=== PATIENT | male | born 1965 | race Caucasian/White ===

== ENCOUNTER 2021-05-06 08:00 | Outpatient (CLI) | payer BC ==
--- NOTE | 2021-05-08 11:49 | XRAY Report ---
PROCEDURE: Finger(s) RT INDICATIONS: CONTUSION TO RIGHT LITTLE FINGER TECHNIQUE: AP hand, 2 views of the right fifth finger(s) acquired. COMPARISON: None. FINDINGS: Transverse fracture of the fifth distal phalanx through the proximal metadiaphysis. No intra-articula r extension. No significant displacement. IMPRESSION: Nondisplaced transverse distal phalanx fracture. Reviewed by: Mac Garcia MD on 05/08/2021 11:47 AM PDT Approved by: Mac Garcia MD on 05/08/2021 11:47 AM PDT Station ID: [id number]
== END 2021-05-06 23:59 | disposition home or self-care (01) ==
LOC: DI.S 08:00
PROVIDERS: ATTEND Emergency Medicine
DX: S62.666A Nondisplaced fracture of distal phalanx of right little finger, initial encounter for closed fracture (principal)

== ENCOUNTER 2024-07-04 12:10 | Observation (INO) ==
[2024-07-04] MEDS ORDERED: iohexoL-300 100 ML VIAL ONE ×2 (12:42→16:52)
[2024-07-04] MEDS: HYDROmorphone 1 MG/ML CARPUJECT IVP STA (12:56)
[2024-07-04 12:57] LABS: BASOPHILS % (AUTO) 0.3 %; EOSINOPHILS % (AUTO) 0.3 %; HCT - HEMATOCRIT 46.4 % (42.0-52.0); HGB - HEMOGLOBIN 16.2 g/dL (14.0-18.0); LYMPHOCYTES # (AUTO) 1.6 10^3/uL (1.5-3.5); LYMPHOCYTES % (AUTO) 12.5 %; MEAN CORPUSCULAR HEMOGLOBIN 31.6 pg (27.0-31.0); MEAN CORPUSCULAR HGB CONC 34.9 g/dL (32.0-36.0); MEAN CORPUSCULAR VOLUME 90.4 fL (80.0-94.0); MEAN PLATELET VOLUME 9.7 fL (7.4-11.4); MONOCYTES # (AUTO) 0.5 10^3/uL (0.0-1.0); MONOCYTES % (AUTO) 4.1 %; NEUTROPHILS # (AUTO) 10.6 10^3/uL (1.5-6.6); NEUTROPHILS % (AUTO) 82.4 %; PLT - PLATELET COUNT 238 10^3/uL (130-450); RED BLOOD COUNT 5.13 10^6/uL (4.70-6.10); RED CELL DISTRIBUTION WIDTH 11.9 % (12.0-15.0); WHITE BLOOD COUNT 12.9 x10^3/uL (4.8-10.8)
--- NOTE | 2024-07-04 13:01 | ED Physician Documentation ---
History of Present Illness Stated complaint Stated Complaint: ABD PX Chief complaint Chief Complaint: Abd Pain History obtained from History obtained from: Patient and Family History of Present Illness Timing: Today Pain level max: 10 Pain level now: 10 Additonal information Additional information: Patient is a 58-year-old male who presents to the emergency department stating that he has right inguinal pain, radiates to the testicles, also radiates up into the abdomen. Nothing makes it better or worse. Thinks that he may have a hernia. No dysuria or urinary frequency. He states it feels like his right testicle is "trying to go home". He states that the testicle itself does not hurt, just that area. He states he also has a rash in the right pubic area. He went to the walk-in clinic and was evaluated there, they sent him here for worsening pain. Meds/Allgy Home Medications Ambulatory Orders Medication Instructions Recorded Confirmed dextroamphetamine-amphetamine 10 10 mg PO QDAY 07/04/24 07/04/24 mg tablet (Adderall) dextroamphetamine-amphetamine ER 20 mg PO QAM 07/04/24 07/04/24 20 mg 24hr capsule,extend release (Adderall XR) nystatin 100,000 unit/gram topical 1 applic topical BID #30 grams 07/04/24 ointment ondansetron 4 mg disintegrating 4 mg PO Q8H PRN nausea and 07/04/24 tablet vomiting #14 tabs oxycodone 5 mg tablet 5 mg PO Q4H PRN Pain #10 tabs 07/04/24 Allergies Allergies Allergy/AdvReac Type Severity Reaction Status Date / Time No Known Drug Allergies Allergy Verified 07/04/24 12:30 [facility] Social History Social History (Updated 07/04/24 @ 14:48 by Lorelei Barakat CRNA) Smoking Status: Current every day smoker Relationship: Do you feel safe in your home environment?: Yes Suffered physical, verbal, emotional, or financial abuse?: No ETOH Use: Wine, Beer and Liquor Frequency: Daily Substance Use: cannabis (any form) Substance Use Details: daily Exam Constitutional normal general appearance Patient is writhing in pain, appears very uncomfortable. Eyes PERRL Neck/C-Spine visual inspection normal Respiratory breath sounds equal bilaterally and normal respiratory effort Cardiovascular normal heart rate noted and regular rhythm noted Gastrointestinal abdomen soft to palpation, nontender to palpation and nondistended Genitourinary no CVA tenderness Tender palpation over the right testicle. High riding right testicle. There is thickening of the scrotum. There is also erythematous papular exanthem to the right groin. No vesicles or pustules. Psychiatry mental status grossly normal and oriented x3 Skin skin color normal Results Vitals Vitals: Vital Signs - 24 hr 07/04/24 12:20 07/04/24 12:56 07/04/24 13:00 Temperature 36 C L Temperature Source Temporal Artery Scan Pulse Rate 78 75 Respiratory Rate 24 20 Blood Pressure 143/77 H 114/69 O2 Saturation 100 100 O2 Source Room air Room air Pain Intensity 10 10 6 07/04/24 13:30 07/04/24 13:57 07/04/24 14:00 Temperature 36.6 C 36.5 C Temperature Source Tympanic Tympanic Pulse Rate 72 72 Respiratory Rate 16 16 Blood Pressure 112/70 112/70 O2 Saturation 100 100 O2 Source Room air Room air Pain Intensity 6 6 6 07/04/24 14:15 07/04/24 15:20 07/04/24 15:25 Temperature Temperature Source Pulse Rate 86 79 Respiratory Rate 19 15 Blood Pressure 138/77 H 104/56 L O2 Saturation 100 98 100 O2 Source Pain Intensity 07/04/24 15:30 07/04/24 15:34 07/04/24 15:36 Temperature Temperature Source Pulse Rate 79 79 Respiratory Rate 15 17 Blood Pressure 146/82 H 112/84 O2 Saturation 100 100 O2 Source Pain Intensity 5 07/04/24 15:42 07/04/24 15:45 07/04/24 15:47 Temperature Temperature Source Pulse Rate 74 79 Respiratory Rate 24 15 Blood Pressure 108/67 131/61 H O2 Saturation 100 100 O2 Source Pain Intensity 8 07/04/24 15:53 07/04/24 15:56 07/04/24 16:05 Temperature Temperature Source Pulse Rate 79 Respiratory Rate 18 Blood Pressure 128/78 O2 Saturation 100 O2 Source Pain Intensity 8 8 07/04/24 16:05 07/04/24 16:15 07/04/24 16:31 Temperature Temperature Source Pulse Rate 80 80 73 Respiratory Rate 18 17 16 Blood Pressure 113/81 110/50 L 122/73 O2 Saturation 100 100 100 O2 Source Pain Intensity 07/04/24 16:31 07/04/24 16:43 Temperature Temperature Source Pulse Rate 75 Respiratory Rate 14 Blood Pressure 120/75 O2 Saturation 100 O2 Source Pain Intensity 5 Oxygen O2 Source Room air Labs Labs: Laboratory Tests 07/04/24 12:50 WBC 12.9 H RBC 5.13 Hgb 16.2 Hct 46.4 MCV 90.4 MCH 31.6 H MCHC 34.9 RDW 11.9 L Plt Count 238 MPV 9.7 Neut # (Auto) 10.6 H Lymph # (Auto) 1.6 [place] # (Auto) 0.5 Eos # (Auto) 0.0 Baso # (Auto) 0.0 Absolute Nucleated RBC 0.00 Nucleated RBC % 0.0 Sodium 138 Potassium 3.9 Chloride 102 Carbon Dioxide 26 Anion Gap 10.0 BUN 15 Creatinine 0.9 Estimated GFR (MDRD) 87 L Glucose 149 H Lactic Acid 2.9 H Calcium 9.8 Total Bilirubin 0.6 AST 23 ALT 23 Alkaline Phosphatase 53 Total Protein 8.1 Albumin 4.9 Globulin 3.2 Albumin/Globulin Ratio 1.5 Lipase 63 Rads (name of study) testicular US: Relevant Findings:: Prelim report reviewed PD Medical Decision Making ED course Complexity details: reviewed old records, reviewed results, considered dif ferential, d/w patient and d/w clinical science consultant ED course: Patient with right-sided testicular torsion on ultrasound. Urology immediately consulted, Dr. Cary. He will take the patient to the operating room. Pain controlled with Dilaudid. No other significant laboratory abnormalities at this time. No palpable inguinal herna. No tenderness at McBurney's point. Discharge Plan Discharge Patient Disposition: ED Transfer to [facility] Condition: Stable Clinical Impression: Right testicular torsion Interventions: ED Admission Assessment Last Done: 07/04/24 14:25
[2024-07-04 13:15] LABS: ALBUMIN 4.9 g/dL (3.2-5.5); ALBUMIN/GLOBULIN RATIO 1.5 (1.0-2.2); BILIRUBIN,TOTAL 0.6 mg/dL (0.2-1.0); CALCIUM 9.8 mg/dL (8.5-10.3); CREATININE 0.9 mg/dL (0.6-1.3); POTASSIUM 3.9 mmol/L (3.5-4.5); TOTAL PROTEIN 8.1 g/dL (6.4-8.9)
[2024-07-04] MEDS: ONDANSETRON 4 MG/2 ML VIAL IVP STA (13:38)
[2024-07-04] MEDS: ceFAZolin (2G) 2 GM in SODIUM CHLORIDE 0.9% MINIBAG 100 ML IV ONE (13:57)
[2024-07-04] MEDS ORDERED: lidocaine 1% 20 ML MDV ONE (14:03)
[2024-07-04] MEDS ORDERED: BUPIVACAINE 0.5% PF 10 ML VIAL ONE (14:03)
[2024-07-04] MEDS ORDERED: BACITRACIN ZINC OINT 1 PACKET TOP ONE (14:03)
--- NOTE | 2024-07-04 14:15 | PREOP HISTORY & PHYSICAL ---
Surgical History & Physical Chief Complaint/HPI Chief Complaint: right testicular torsion History of Present Illness: Carlos is a 58-year male with no significant urological history who presents today with acute on chronic right testicular pain. He states he has had bothersome right-sided inguinal and testicular pain for about a week. This worsened this morning at about 9 AM he had significant pain. He denies significant nausea and vomiting with it. He went to an urgent care clinic who also noted he had a rash in that area. He states he has eczema and gets rashes occasionally in the groin. He was sent urgently to the ER who performed an ultrasound which showed no flow in the right testicle. He denies trauma. He is not on any blood thinning medications Home Meds and Allergies Active Medications Generic Name Dose Route Start Last Admin Trade Name Freq PRN Reason Stop Dose Admin Cefazolin Sodium 2 gm/ Sodium 100 mls @ 200 mls/hr 07/04/24 13:48 07/04/24 13:57 Chloride IV 07/04/24 14:17 200 mls/hr ONCE ONE Administration dextroamphetamine-amphetamine 10 mg tablet (Adderall) 10 mg PO QDAY 07/04/24 dextroamphetamine-amphetamine ER 20 mg 24hr capsule,extend release (Adderall XR) 20 mg PO QAM 07/04/24 Allergies Allergy/AdvReac Type Severity Reaction Status Date / Time No Known Drug Allergies Allergy Verified 07/04/24 12:30 Vital Signs O2 Saturation: 100 Patient Review Patient Review Pertinent Tests Reviewed [facility] Social History Social History (Updated 07/04/24 @ 11:20 by LUCIUS Bowles) Smoking Status: Unknown if ever smoked Relationship: Do you feel safe in your home environment?: Yes Suffered physical, verbal, emotional, or financial abuse?: No Exam Exam NAD RRR CTA b/l right inguinal fungal vs vesicular rash right testicle high riding, no swelling, bilateral cremasteric reflex negative TTP on right testicle Assessment & Plan Assessment & Plan Assessment & Plan: Right testicular torsion likely We discussed his likely right testicular torsion. I recommend emergent scrotal exploration, bilateral orchiopexy, possible right orchiectomy. Risk of the procedure including: Infection, bleeding, injury to adjacent structures, need for additional procedures, failure of therapy, low testosterone, infertility were discussed. We also discussed that his history is not consistent with testicular torsion. It is possible some other atypical pathology is causing poor blood flow. Patient states understanding and consents to the above plan The patient has been marked and consented
[2024-07-04] MEDS ORDERED: MIDAZOLAM 2 MG/2 ML VIAL ONE (14:20)
[2024-07-04] MEDS ORDERED: fentaNYL 100 MCG/2 ML VIAL ONE ×3 (14:21→16:02)
[2024-07-04] MEDS ORDERED: ROCURONIUM 50 MG/5 ML VIAL ONE (14:22)
[2024-07-04] MEDS ORDERED: PROPOFOL 200 MG/20 ML VIAL IVP ONE (14:22)
[2024-07-04] MEDS ORDERED: LIDOCAINE-PF 2% 10 ML AMP SUBQ ONE (14:22)
[2024-07-04] MEDS ORDERED: SUCCINYLCHOLINE 200 MG/10 ML VIAL ONE (14:25)
--- NOTE | 2024-07-04 14:51 | ANESTHESIA PROCEDURE NOTE ---
Pre-Anesthesia VS, & Labs Diagnosis Surgical Diagnosis:: R testicular torsion Procedure Procedure: scrotal exploration, B ochiopexy, possible R orchiectomy Vitals Vital Signs: Temp Pulse Resp BP Pulse Ox 36.5 C 72 16 112/70 100 07/04/24 14:00 07/04/24 14:00 07/04/24 14:00 07/04/24 14:00 07/04/24 14:15 NPO NPO: Other Last Fluid Intake: 0800 Lab Results Current Lab Results: Laboratory Tests 07/04/24 12:50: WBC 12.9 H, RBC 5.13, Hgb 16.2, Hct 46.4, MCV 90.4, MCH 31.6 H, MCHC 34.9, RDW 11.9 L, Plt Count 238, MPV 9.7, Neut # (Auto) 10.6 H, Lymph # (Auto) 1.6, [place] # (Auto) 0.5, Eos # (Auto) 0.0, Baso # (Auto) 0.0, Absolute Nucleated RBC 0.00, Nucleated RBC % 0.0, Sodium 138, Potassium 3.9, Chloride 102, Carbon Dioxide 26, Anion Gap 10.0, BUN 15, Creatinine 0.9, Estimated GFR (MDRD) 87 L, Glucose 149 H, Lactic Acid 2.9 H, Calcium 9.8, Total Bilirubin 0.6, AST 23, ALT 23, Alkaline Phosphatase 53, Total Protein 8.1, Albumin 4.9, Globulin 3.2, Albumin/Globulin Ratio 1.5, Lipase 63 07/04/24 12:50 07/04/24 12:50 Meds/Allgy Home Medications Ambulatory Orders Medication Instructions Recorded Confirmed dextroamphetamine-amphetamine 10 10 mg PO QDAY 07/04/24 07/04/24 mg tablet (Adderall) dextroamphetamine-amphetamine ER 20 mg PO QAM 07/04/24 07/04/24 20 mg 24hr capsule,extend release (Adderall XR) Allergies Allergies Allergy/AdvReac Type Severity Reaction Status Date / Time No Known Drug Allergies Allergy Verified 07/04/24 12:30 [facility] Social History Social History (Updated 07/04/24 @ 14:48 by Lorelei Barakat CRNA) Smoking Status: Current every day smoker Relationship: Do you feel safe in your home environment?: Yes Suffered physical, verbal, emotional, or financial abuse?: No ETOH Use: Wine, Beer and Liquor Frequency: Daily Substance Use: cannabis (any form) Substance Use Details: daily Anesthesia Exam (Expanded) Exam General: Alert, Oriented x3 and Moderate distress Dental: Other (lots of dental work, multiple bridges and full veneers up top) Mouth Openin Fingerbreadth Mallampati classification: I Thyromental Distance: 4-6 cm Respiratory: Lungs clear Cardiovascular: Regular rate Mental/Cognitive Status: Alert/Oriented X3 Plan Problem List (1) Right testicular torsion: (2) Abdominal pain, right lower quadrant: (3) Acute eczema: Plan Anesthesia Type: General Consent for Procedure(s) Verified and Reviewed: Yes Code Status: Attempt Resuscitation ASA Classification ASA classification: 2-Mild systemic disease Is this case an emergency?: Yes
[2024-07-04] MEDS ORDERED: SUGAMMADEX 200 MG/2 ML VIAL IVP ONE (14:52)
[2024-07-04] MEDS ORDERED: ePHEDrine 50 MG/ML VIAL IVP PRN (14:54)
[2024-07-04] MEDS ORDERED: MORPHINE 2 MG/ML CARPUJECT IVP PRN (14:54)
[2024-07-04] MEDS ORDERED: NALOXONE 0.4 MG/ML VIAL IVP PRN (14:54)
[2024-07-04] MEDS ORDERED: ONDANSETRON 4 MG/2 ML VIAL IVP PRN ×3 (14:54→17:55)
[2024-07-04] MEDS ORDERED: ATROPINE ABBOJECT 1 MG/10 ML SYRINGE IVP PRN (14:54)
[2024-07-04] MEDS ORDERED: METOCLOPRAMIDE 10 MG/2 ML VIAL IVP PRN (14:54)
[2024-07-04] MEDS ORDERED: [UNRECOGNIZED DRUG - OTHER] INH ONE (15:00)
--- NOTE | 2024-07-04 15:00 | Ultrasound Report ---
PROCEDURE: US Testicle w/Doppler INDICATIONS: R sided testicular pain TECHNIQUE: Real-time scanning was performed of the scrotum and testicles, with image documentation. Color and p ulse Doppler interrogation was performed of both testicles. COMPARISON: None. FINDINGS: Right: Testicle is normal in size at 4.2 x 3.7 x 2.5 cm, and homogenous in echotexture. Epididymis is not well seen. There is a hypoechoic focus adjacent to the right testicle measuring 3.6 x 2.3 cm. Appears avascular. No hydrocele. No varicoceles. Right scrotal appears mildly thickened measuring 1 cm. Left: Testicle is normal in size at 5.2 x 2.9 x 2.8 cm, and homogeneous in echotexture. Epididymis is normal in overall size and morphology. Small hydrocele. No varicoceles. Left scrotal wall is prom inent measures 0.8 cm. Doppler: No significant blood flow is appreciated in the right testicle. Arterial flow in the left te sticle appears diminished. Venous flow is seen in the left testicle. IMPRESSION: 1. No significant blood flow in the right testicle consistent with testicular torsion. 2. Heterogeneous hypoechoic structure adjacent to the right testicle which appears avascular measurin g 3.6 x 2.3 cm. This could represent torsed epididymal tissue. Less likely extratesticular neoplasm. 3. Scrotal wall thickening, right greater than left. Preliminary results were conveyed to Dr. Sanchez by the [employer] advisor at 1:45 PM. Reviewed by: Palmer Gomes MD on 07/04/2024 2:59 PM PST Approved by: Palmer Gomes MD on 07/04/2024 2:59 PM PST Station ID: [id number]
[2024-07-04] MEDS: HYDROmorphone 0.5 MG/0.5 ML SYRINGE IVP PRN (15:34)
[2024-07-04] MEDS ORDERED: HYDROmorphone 0.5 MG/0.5 ML SYRINGE ONE ×2 (15:34→16:30)
[2024-07-04] MEDS: fentaNYL 100 MCG/2 ML VIAL IVP PRN (15:45)
[2024-07-04] MEDS ORDERED: LIDOCAINE 2% URO-JET 5 ML SYRINGE UR ONE (16:02)
--- NOTE | 2024-07-04 16:50 | OPERATIVE REPORT ---
Operative Report General Procedure Data: Operation Date: 07/04/24 13:45 Proposed Procedures p SCROTAL EXPLORATION, BILATERAL Orchiopexy, POSSIBLE ORCHIECTOMY(Bilateral) - Wing Cary MD Actual Procedures p SCROTAL EXPLORATION, BILATERAL Orchiopexy, REMOVAL OF APPENDIX TESTIS, REMOVAL OF APPENDIX EPIDIDYMUS(Bilateral) - Wing Cary MD Pre-Op Diagnosis: RIGHT TESTICULAR TORSION Anesthesia Type General Case Staff Anesthesia Provider: Lorelei Barakat Case Times Into Recovery: 07/04/24 15:15 Procedure Start: 07/04/24 14:35 Procedure End: 07/04/24 15:05 Time out: 07/04/24 14:35 Pre-Op Diagnosis: right testicular torsion Post Op Diagnosis: right testicular torsion, left appendix testis and epididymis Procedure Note Estimated Blood Loss (ml): 1 Indications: right testicular torsion on ultrasound Findings: 180 degree torsion on the right. Appendix testis and appendix epididymis on the left were removed Complications: none Other Other Information/Narrative: After informed sent was obtained the patient is brought to the OR and laid in the supine position. The patient was anesthetized per anesthesia protocols and prepped draped in usual sterile fashion. A formal timeout was performed reconfirmed the patient and procedure and laterality. 1% lidocaine was placed as local into the median raphae. Using electrocautery we dissected down to the median septum, and then incised the right dartos and delivered the tunica vaginalis. This was then incised to reveal the testicle. It appeared to have torsed perhaps 180 degrees in a close book fashion. The testicle however appeared quite pink and viable. There was no duskiness. It appeared quite healthy in fact. He did have a long looping vas deferens on the right and his epididymis was quite prominent.There was no appendix testis or appendix epididymis. We then turned our attention to the contralateral side. His left dartos was opened and his tunica vaginalis on the left was delivered. This was incised with electrocautery delivering the testicle and spermatic cord on the left. This looks similarly healthy. He had an appendix testis and appendix epididymis which were removed using electrocautery to prevent future torsion and pain. His spermatic cord was probed on the right proximally and no appreciable hernia was palpated. Using 4-0 Ethilon suture we then performed a orchiopexy maneuver bilaterally by tacking the testicles to the medial, lateral and inferior portion of the inner scrotum. Spermatic cord blocks were performed on both sides using lidocaine. The incision and testicles were copiously irrigated with saline. We then closed the inner Duratocin and septum using running 3-0 Vicryl suture. The skin was closed using a combination of horizontal mattress and running 3-0 chromic suture. Bacitracin gauze and a Tegaderm was placed. This include the procedure and the patient tolerated the procedure well. He was brought to the PACU without further incident. The plan will be to discharge him home pending pain resolution otherwise he will be kept overnight and further imaging will be obtained
--- NOTE | 2024-07-04 17:16 | ANESTHESIA POST OP EVALUATION ---
Anesthesia Post Eval Post Anesthesia Eval Vitals: Last Vital Signs Temp 36.5 C 07/04/24 14:00 Pulse 75 07/04/24 16:43 Resp 14 07/04/24 16:43 BP 120/75 07/04/24 16:43 Pulse Ox 100 07/04/24 16:43 CV Function Including HR & BP: Stable Pain Control: Additional Therapies Ordered (Dr Luis Daniel dai, see his orders) Nausea & Vomiting: Negative Mental Status: Baseline Respiratory Status: Airway Patent Hydration Status: Satisfactory Anesthesia Complications: None
[2024-07-04 17:46] LABS: BILIRUBIN,URINE NEGATIVE (NEGATIVE); GLUCOSE, URINE (UA) NEGATIVE (NEGATIVE); KETONES,URINE (UA) TRACE mg/dL (NEGATIVE); LEUKOCYTE ESTERASE, URINE TRACE (NEGATIVE); NITRITE,URINE NEGATIVE (NEGATIVE); OCCULT BLOOD,URINE NEGATIVE (NEGATIVE); PROTEIN,URINE NEGATIVE (NEGATIVE); UROBILINOGEN,URINE 0.2 (NORMAL) E.U./dL (NORMAL)
[2024-07-04] MEDS: HYDROcod/ACETAM 5/325 MG TABLET PO PRN (17:46)
[2024-07-04] MEDS ORDERED: ONDANSETRON ODT 4 MG TABLET TL PRN (17:55)
[2024-07-04] MEDS ORDERED: SODIUM CHLORIDE FLUSH 0.9% 10 ML SYRINGE IVP PRN (17:55)
[2024-07-04] MEDS ORDERED: ACETAMINOPHEN 325 MG TABLET PO PRN (17:55)
[2024-07-04 18:01] LABS: AMORPHOUS SEDIMENT,UR Moderate /LPF; BACTERIA,URINE Few /HPF (None Seen); CLARITY,URINE CLOUDY (CLEAR); RBC,URINE 0-5 /HPF (0-5); SQUAMOUS EPITHELIAL CELL,UR RARE Squamous (<= Few); WBC CLUMPS,URINE PRESENT
[2024-07-04] MEDS: SODIUM CHLORIDE 0.9% 1,000 ML IV SCH (18:30)
[2024-07-04] MEDS: GABAPENTIN 300 MG CAPSULE PO SCH (18:34)
[2024-07-04] MEDS: LACTATED RINGERS 1,000 ML IV SCH (19:24)
--- NOTE | 2024-07-04 20:03 | CT Report ---
PROCEDURE: CT Abdomen/Pelvis W/WO INDICATIONS: continued severe RLQ and R testicular pain CONTRAST: Omni 300 100ml TECHNIQUE: Before and after the administration of intravenous contrast, a CT scan of the abdomen and pelvis was performed. Images were recorded and evaluated at appropriate window settings. Reformats: coronal and sagittal. For radiation dose reduction, the following was used: automated exposure control, adjustmen t of mA and/or kV according to patient size. COMPARISON: None. FINDINGS: Image quality: Diagnostic. Lower chest: Unremarkable. Liver: No solid mass. Gallbladder: No radiopaque stones or wall thickening. Biliary tree: No intrahepatic or extrahepatic dilation, accounting for age. Spleen: No splenomegaly. Pancreas: No pancreatic ductal dilation. Adrenals: No adrenal nodule. Kidneys and ureters: No hydronephrosis. No renal cystic lesion which requires follow up. No solid mas s. Stomach, bowel and peritoneum: No gastric or small bowel dilation. No abnormal wall thickening. No pa thologic free fluid. Normal appendix. Lymph nodes: No central or retroperitoneal adenopathy. Vessels: No infrarenal aortic aneurysm. Patent portal vein. PELVIS Reproductive organs: Subcutaneous gas within the scrotum. Extensive scrotal edema is present. Bladder: Decompressed and a Blas catheter. There is gas within the urinary bladder, presumably iatro genic. Pelvic lymph nodes: No pelvic adenopathy by size criteria. Bones: No aggressive osseous abnormality. Other: Trace right inguinal hernia containing fat. IMPRESSION: Subcutaneous gas within the scrotum, with extensive scrotal edema. Findings are likely a sequela of r ecent surgery, given testicular torsion noted on earlier ultrasound. No additional findings to explain the patient's right lower quadrant pain. No nephrolithiasis. Normal appendix. Findings discussed with LUCIUS Knapp at 8:01 PM on 07/04/2024. Reviewed by: Donny Fleming MD on 07/04/2024 8:02 PM PST Approved by: Donny Fleming MD on 07/04/2024 8:02 PM PST Station ID: [id number]
[2024-07-04] MEDS ORDERED: IBUPROFEN 400 MG TABLET PO PRN (20:32)
--- NOTE | 2024-07-04 20:38 | PROVIDER PROGRESS NOTE ---
Progress Note Progress Note Progress Note: After his procedure, the patient continued to have significant right lower quadrant pain and a sensation of pelvic fullness. He had not voided and could not void with PVR of 366 cc. For this reason a Blas catheter was placed. It did improve his symptoms somewhat. However he continued to have significant right lower quadrant pains and pain in his testicles. For this reason he was admitted to the floor for pain control and nausea management. He has CT scan with IV contrast which was read by myself and by the radiologist and saw no significant pathology excepting normal post operative changes. I contact the patient and let him know these results. We will plan to remove his Blas catheter tonight. He also states he has not had a bowel movement in at least a day. I recommend an aggressive bowel regimen. Overall I recommend continued aggressive pain control and ultimately discharged tomorrow. I am at a loss to explain his significant pain out of proportion to his exam, but without a structural abnormality, we will have to work on pain control in the outpatient OK to eat
[2024-07-04] MEDS: iohexoL-300 100 ML VIAL IVP ONE (21:04)
[2024-07-04] MEDS: polyethylene glycoL 3350 17 GM PACKET PO PRN (21:12)
[2024-07-05] MEDS: SENNA 8.6 MG TABLET PO SCH (01:00)
[2024-07-05] MEDS: SODIUM CHLORIDE FLUSH 0.9% 10 ML SYRINGE IVP SCH (03:26)
[2024-07-05 03:28] VITALS: TEMP 98.8
[2024-07-05] MEDS: HYDROmorphone 0.5 MG/0.5 ML SYRINGE IVP PRN (05:52)
[2024-07-05] MEDS ORDERED: oxyCODONE 5 MG TABLET PO PRN ×2 (06:29→06:30)
[2024-07-05] MEDS: IBUPROFEN 400 MG TABLET PO SCH (06:59)
--- NOTE | 2024-07-05 08:22 | PROVIDER PROGRESS NOTE ---
Subjective Prog Note Date Prog Note Date: 07/05/24 Prog Note Time: 08:19 Subjective Pt reports feeling: No change Subjective: Patient was admitted overnight for continued right lower quadrant abdominal pain, inguinal pain, testicular pain. He also had some emesis after his surgery. He has no pain when lying down on his fronts. He has pain with ambulation. He states that his 10 out of 10 pain. He has not had a bowel movement or passed flatus. He has had a CT scan with IV contrast which ruled out appendicitis or hernia. Today an ultrasound was performed at bedside with me present which showed good blood flow into the right testicle Current Medications Current Medications Current Medications: Current Medications Generic Name Dose Route Start Last Admin Trade Name Freq PRN Reason Stop Dose Admin Acetaminophen 650 mg 07/05/24 09:00 Acetaminophen 325 Mg Tablet PO Q4HR JH Docusate Sodium 100 mg 07/05/24 09:00 Docusate Sodium 100 Mg Capsule PO DAILY JH Gabapentin 300 mg 07/04/24 18:00 07/05/24 05:38 Gabapentin 300 Mg Capsule PO 300 mg TID JH Administration Sodium Chloride 1,000 mls @ 100 mls/hr 07/04/24 18:00 07/05/24 05:38 Normal Saline 0.9% IV 100 mls/hr .Q10H JH Administration Ibuprofen 400 mg 07/05/24 07:00 07/05/24 06:59 Ibuprofen 400 Mg Tablet PO 400 mg Q6HR JH Administration Ondansetron HCl 4 mg 07/04/24 15:29 Ondansetron 4 Mg/2 Ml Vial IVP Q6HR PRN Nausea / Vomiting Ondansetron HCl 4 mg 07/04/24 17:55 Ondansetron Odt 4 Mg Tablet TL Q6HR PRN Nausea / Vomiting Ondansetron HCl 4 mg 07/04/24 17:55 Ondansetron 4 Mg/2 Ml Vial IVP Q6HR PRN Nausea / Vomiting Oxycodone HCl 5 mg 07/05/24 06:29 Oxycodone 5 Mg Tablet PO Q4HR PRN Moderate Pain (Level 4-6) Oxycodone HCl 10 mg 07/05/24 06:30 Oxycodone 5 Mg Tablet PO Q4HR PRN Severe Pain (Level 7-10) Polyethylene Glycol 17 gm 07/04/24 20:32 07/04/24 21:12 Polyethylene Glycol 3350 17 Gm Packet PO 17 gm DAILY PRN Administration Bowel Protocol Senna 8.6 mg 07/04/24 20:25 07/05/24 01:00 Senna 8.6 Mg Tablet PO Not Given DAILY [facility] Sodium Chloride 10 ml 07/04/24 17:55 Sodium Chloride Flush 0.9% 10 Ml Syringe IVP PRN PRN NEEDED PER PROVIDER ORDERS Sodium Chloride 10 ml 07/05/24 01:00 07/05/24 03:26 Sodium Chloride Flush 0.9% 10 Ml Syringe IVP 10 ml 0100,0900,1700 JH Administration Objective Vital Signs/Intake & Output Reviewed Vital Signs: Yes Vital Signs: Vital Signs x48h Temp Pulse Resp BP Pulse Ox 07/05/24 08:10 37.1 C 69 18 121/68 97 07/05/24 03:27 37.1 C 75 20 118/73 99 Intake & Output: Intake & Output 07/02/24 07/03/24 07/04/24 07/05/24 23:59 23:59 23:59 23:59 Intake Total 832 / 832 1000 / 1000 Output Total 1095 / 1095 Balance -263 / -263 1000 / 1000 Weight (kg) 86 kg Objective General Appearance: positive No acute distress (abdomen soft, non tender, non distended. R inguinal area with rash, possibly vesicular but more fungal appearing. Scrotal dressing removed, incision c/d/i, though some puckering in middle) Lab Results 07/04/24 12:50 07/04/24 12:50 Other Labs: Lab Results x24hrs 07/04/24 07/04/24 Range/Units 16:10 12:50 WBC 12.9 H (4.8-10.8) x10^3/uL RBC 5.13 (4.70-6.10) 10^6/uL Hgb 16.2 (14.0-18.0) g/dL Hct 46.4 (42.0-52.0) % MCV 90.4 (80.0-94.0) fL MCH 31.6 H (27.0-31.0) pg MCHC 34.9 (32.0-36.0) g/dL RDW 11.9 L (12.0-15.0) % Plt Count 238 (130-450) 10^3/uL MPV 9.7 (7.4-11.4) fL Neut # (Auto) 10.6 H (1.5-6.6) 10^3/uL Lymph # (Auto) 1.6 (1.5-3.5) 10^3/uL [place] # (Auto) 0.5 (0.0-1.0) 10^3/uL Eos # (Auto) 0.0 (0.0-0.7) 10^3/uL Baso # (Auto) 0.0 (0.0-0.1) 10^3/uL Absolute Nucleated RBC 0.00 x10^3/uL Nucleated RBC % 0.0 /100WBC Sodium 138 (135-145) mmol/L Potassium 3.9 (3.5-4.5) mmol/L Chloride 102 (101-111) mmol/L Carbon Dioxide 26 (21-32) mmol/L Anion Gap 10.0 (6-13) BUN 15 (6-20) mg/dL Creatinine 0.9 (0.6-1.3) mg/dL Estimated GFR (MDRD) 87 L (>89) Glucose 149 H (74-104) mg/dL Lactic Acid 2.9 H (0.5-2.2) mmol/L Calcium 9.8 (8.5-10.3) mg/dL Total Bilirubin 0.6 (0.2-1.0) mg/dL AST 23 (10-42) IU/L ALT 23 (10-60) IU/L Alkaline Phosphatase 53 (42-121) IU/L Total Protein 8.1 (6.4-8.9) g/dL Albumin 4.9 (3.2-5.5) g/dL Globulin 3.2 (2.1-4.2) g/dL Albumin/Globulin Ratio 1.5 (1.0-2.2) Lipase 63 (11-82) U/L Urine Color YELLOW Urine Clarity CLOUDY (CLEAR) Urine pH 8.0 H (5.0-7.5) PH Ur Specific [place] 1.020 (1.002-1.030) Urine Protein NEGATIVE (NEGATIVE) mg/dL Urine Glucose (UA) NEGATIVE (NEGATIVE) mg/dL Urine Ketones TRACE (NEGATIVE) mg/dL Urine Occult Blood NEGATIVE (NEGATIVE) Urine Nitrite NEGATIVE (NEGATIVE) Urine Bilirubin NEGATIVE (NEGATIVE) Urine Urobilinogen 0.2 (NORMAL) (NORMAL) E.U./dL Ur Leukocyte Esterase TRACE H (NEGATIVE) Urine RBC 0-5 (0-5) /HPF Urine WBC 6-10 H (0-3) /HPF Urine WBC Clumps PRESENT Ur Squamous Epith Cells RARE Squamous (<= Few) Amorphous Sediment Moderate /LPF Urine Bacteria Few (None Seen) /HPF Ur Microscopic Review INDICATED ABX Reporting Has patient been on IV antibiotics over the past 48 hours?: No Assessment/Plan Problem List (1) Right testicular torsion: Impression: Completely resolved on imaging today. Severe continued atypical pain mostly with ambulation. He and I had a long discussion this morning. Ultimately I am at a loss as to his continued pains. I cannot explain this from urological perspective. I am hopeful that this is part of the healing process for him. I would recommend a cocktail of standing medications, Tylenol, ibuprofen, gabapentin. PRN narcotics I also recommend treatment for possible shingles with acyclovir, and empiric antibiotics given white blood cells seen in urine while we await culture. I will give him an aggressive bowel regimen today. My plan is for him to eat and hopefully get him home
--- NOTE | 2024-07-05 08:30 | Ultrasound Report ---
PROCEDURE: US Testicle INDICATIONS: continued severe pain after testicle torsion surge TECHNIQUE: Real-time scanning was performed of the scrotum and testicles, with image documentation. Color and p ulse Doppler interrogation was performed of both testicles. COMPARISON: None. FINDINGS: Right: Testicle is normal in size at 4.1 x 2.3 x 3.6 cm, and homogenous in echotexture. Epididymis is normal in overall size and morphology. No hydrocele. No varicoceles. Overlying scrotal skin is n ormal in thickness given postoperative state. Left: Testicle is normal in size at 4.1 x 2.3 x 3.8 cm, and homogeneous in echotexture. Epididymis is normal in overall size and morphology. No hydrocele. No varicoceles. Overlying scrotal skin is n ormal in thickness given postoperative state. Doppler: Color and pulse Doppler demonstrate normal and symmetric arterial flow in both testicles. IMPRESSION: No sonographic abnormalities to explain right-sided pain. Testicular vascular flow appears symmetric. No suspicious fluid collection. Preliminary results given by the cellophane press operator to the ordering provider immediately following the study . Reviewed by: Shawanda Pederson MD on 07/05/2024 8:28 AM PST Approved by: Shawanda Pederson MD on 07/05/2024 8:28 AM PST Station ID: [id number]
[2024-07-05] MEDS: DOCUSATE SODIUM 100 MG CAPSULE PO SCH (09:24)
[2024-07-05] MEDS: ACETAMINOPHEN 325 MG TABLET PO SCH (09:24)
[2024-07-05] MEDS: ACYCLOVIR 200 MG CAPSULE PO SCH (09:24)
[2024-07-05] MEDS: AMOX/CLAV 875 MG/125 MG TABLET PO SCH (09:24)
[2024-07-05] MEDS: NYSTATIN CREAM 15 GM TUBE TOP SCH (09:25)
[2024-07-05] MEDS: GLYCERIN ADULT SUPP PR ONE (09:26)
--- NOTE | 2024-07-05 13:04 | Discharge Summary ---
"Discharge Summary Admit Date: 07/04/24 Discharge Date: 07/05/24 Discharging Provider: Dr Cary Code Status: Attempt Resuscitation DIAGNOSES Admission Diagnoses: right testicular torsion and pain Discharge Diagnoses with Status of Each Condition: right testicular torsion- resolved pain- improved HPI History of Present Illness: 58-year-old male presenting with acute right testicular torsion 07/04/24 CONSULTS | PROCEDURES Consultations: Urology Procedures: scrotal exploration, bilateral orchiopexy HOSPITAL COURSE Hospital Course: After procedure he continued to have significant pain which was more in inguinal region. He was noted to have a rash in inguinal region which may have been fungal versus vesicular in nature. Given his persistent pain he was admitted to the hospital for CT scan which was benign. Continued to have pain overnight intermittently. A repeat ultrasound the morning showed good flow to the testicle. He was given aggressive bowel regimen as he has not had a bowel movement in a few days. Ultimately he was discharged home on July 05 with a combination of narcotic pain medications, muscle relaxants, antifungal medications, antiviral medications and antibiotics. The antibiotics were given as his urinalysis did show white blood cells though his urine culture was negative as of time of discharge ALLERGIES Allergies Allergy/AdvReac Type Severity Reaction Status Date / Time No Known Drug Allergies Allergy Verified 07/04/24 12:30 MEDICATIONS Ambulatory Orders Medication Instructions Recorded Confirmed dextroamphetamine-amphetamine 10 10 mg PO QDAY 07/04/24 07/04/24 mg tablet (Adderall) dextroamphetamine-amphetamine ER 20 mg PO QAM 07/04/24 07/04/24 20 mg 24hr capsule,extend release (Adderall XR) nystatin 100,000 unit/gram topical 1 applic topical BID #30 grams 07/04/24 ointment ondansetron 4 mg disintegrating 4 mg PO Q8H PRN nausea and 07/04/24 tablet vomiting #14 tabs oxycodone 5 mg tablet 5 mg PO Q4H PRN Pain #10 tabs 07/04/24 acyclovir 800 mg tablet 800 mg PO 5XD 7 days #35 tabs 07/05/24 amoxicillin 875 mg-potassium 1 tab PO BID 4 days #8 tabs 07/05/24 clavulanate 125 mg tablet cyclobenzaprine 10 mg tablet 10 mg PO TID PRN muscle spasm #30 07/05/24 tabs gabapentin 300 mg capsule 300 mg PO TID #30 caps 07/05/24 PHYSICAL EXAM AT DISCHARGE General Appearance: positive No acute distress (No swelling of scrotum, mild puckering of midline raphae incision, clean dry intact) Abdomen: positive Non-tender and No distention LABS 07/04/24 12:50 07/04/24 12:50 DIAGNOSTIC IMAGING Diagnostic Imaging Results: Final report reviewed and Read independently SEPSIS Current Stage of Sepsis: Ruled out FOLLOW UP Follow Up: [address] Cary TIME SPENT Time Spent in Discharge (Minutes): 30 Discharge Plan Discharge Patient Disposition: Home, Self Care Condition: Stable Medically Cleared Date:: 07/05/24 Prescriptions: New oxycodone 5 mg tablet 5 mg PO Q4H PRN (Reason: Pain) Qty: 10 0RF Rx Instructions: Take with food. Do Not drive while taking medication. nystatin 100,000 unit/gram ointment 1 applic topical BID Qty: 30 0RF Rx Instructions: apply to rash twice a day for 30 days ondansetron 4 mg tablet,disintegrating 4 mg PO Q8H PRN (Reason: nausea and vomiting) Qty: 14 0RF acyclovir 800 mg tablet 800 mg PO 5XD 7 Days Qty: 35 0RF Rx Instructions: space evenly during waking hours cyclobenzaprine 10 mg tablet 10 mg PO TID PRN (Reason: muscle spasm) Qty: 30 0RF amoxicillin-pot clavulanate 875-125 mg tablet 1 tab PO BID 4 Days Qty: 8 0RF gabapentin 300 mg Capsule 300 mg PO TID Qty: 30 0RF Continued dextroamphetamine-amphetamine [Adderall XR] 20 mg capsule,extended release 24hr 20 mg PO QAM dextroamphetamine-amphetamine [Adderall] 10 mg tablet 10 mg PO QDAY Activity Restrictions/Additional Instructions: DIET - You may resume your normal diet if there is no nausea or vomiting. You may want to avoid spicy, greasy, or heavy foods today to minimize gas. - If nausea or vomiting occurs, don't eat or drink anything for one hour. Then start drinking small amounts of clear liquids. Later, add crackers, gradually building up to your usual diet. ACTIVITY INSTRUCTIONS * No exercise and no heavy lifting greater than 10 pounds for 4 weeks. No sexual activity for 2 weeks DRESSING CARE It is normal to see some blood from the incision occasionally. Please gauze as needed. No bathing for 1 week You can shower starting tomorrow but do not scrub your incisions CARE INSTRUCTIONS * Ice to wound for 15min [4] times per day. * Use ice for [5] days. * [Use supportive garments to reduce surgical site motion] DISCHARGE INSTRUCTIONS It is normal to see some bruising in your scrotum and penis Call for significant swelling Call for fever greater than 100.4 Fahrenheit Call for significant nausea and vomiting and inability to tolerate fluid intake MEDICATIONS * Take Tylenol as needed for pain. Take narcotics for rescue pain. Take muscle relaxant medicine for spasm pain. Take stool softeners on days when you take pain medications * Use antifungal cream on your inguinal area twice a day for the next month * You have an incision on the scrotum. Take antiviral medication until completed * Take antibiotics until completed ANESTHESIA PRECAUTIONS Anesthesia and medications given during surgery remain in your body up to 24 hours. This may slow reaction time and/or decrease coordination. FOR THE NEXT 24 HOURS: - Have a responsible person with you - Avoid any activity that requires you to be alert and coordinated - DO NOT DRIVE a motor vehicle for 24 hours or as long as you are taking opoid pain medication - Do not drink alcoholic beverages - Do not smoke unattended Patient Date Escort Date RN Date Print Language: Georgian Patient Instructions: Surgery Anesthesia After Stand Alone Forms: PCP List Follow-up Care: Wing Cary MD [Provider Admit Priv/Credential] - (Please call the office to be followed up with Dr. Cary in 1 months time)"
[2024-07-05] MEDS: MAGNESIUM CITRATE 296 ML BOTTLE PO ONE (13:15)
[2024-07-05 13:27] VITALS: BP 131/78; O2SAT 98
== END 2024-07-05 13:53 | disposition home or self-care (01) ==
LOC: ED 12:10 → MS2 13:48 → SDS 13:48 → MS2 16:42
PROVIDERS: ADMIT Urology; ATTEND Urology